=== PATIENT | female | born 1945 | race Caucasian/White ===

== ENCOUNTER → 2016-12-12 | Outpatient (CLI) | payer MEDICARE, OTHER ==
--- NOTE | ~2016-12-12 | PUL ---
PATIENT'S NAME: JANIS MARI [facility] AGE: 71 Y [address] ROOM: [place] [address] LOCATION: [facility] ADMIT DATE: 12/12/2016 Pulmonary DISCHARGE DATE: FAMILY PHYSICIAN: Eleazar Adame MD ATTENDING PHYSICIAN: Eleazar Bennett NAME OF PROCEDURE: Sleep Study PROCEDURE DATE: 12/12/16 TECH: NICOLE Saleem TEST #: [facility] [place]# [id number] TECHNICAL PARAMETERS: The patient was studied using International 10/20 measuring system. While the patient was studied, there was continuous monitoring of EEG (8 leads), EOG (2 leads), EKG (3 leads), submental EMG (3 leads), tibial (4 leads), respiratory inductive plethysmography (RIP) for thoracic and abdominal effort, oral and nasal airflow with a thermocouple and pressure transducer, and oximetry. The underwriting technician also performed visual and auditory observations noting things like body position, patient's status, breath sounds, artifact, snoring level and patient comments. Continuous sound was monitored using a 2-way speaker system and video monitoring was performed using an infrared camera. Review of the entire study was performed epoch by epoch utilizing a single epoch and multiple epoch capability sleep system. MEDICAL HISTORY: Patient is a 71-year-old woman with daytime sleepiness and snoring. SLEEP STAGE SUMMARY: The patient was studied for 365 minutes of which she slept less than 60 minutes. She fell asleep in 130 minutes and slept for 69% of the night. RESPIRATORY SUMMARY: This study was done to titrate CPAP which was started at 6 cm and titrated to 8 cm. The patient had a great deal of difficulty sleeping with CPAP on and therefore CPAP titration was incomplete. EKG SUMMARY: Average heart rate 66 beats per minute. LIMB MOVEMENT SUMMARY: No clinically relevant periodic limb movements were noted. SUMMARY: History of obstructive sleep apnea with incomplete CPAP titration. PLAN: Consider auto titrating CPAP. PATIENT'S NAME: JANIS MARI [facility] AGE: 71 Y [address] ROOM: [place] [address] LOCATION: [facility] ADMIT DATE: 12/12/2016 Pulmonary DISCHARGE DATE: FAMILY PHYSICIAN: Eleazar Adame MD ATTENDING PHYSICIAN: Eleazar Bennett MD KHANH GRACIA/ /[id number] dtt: 12/30/16 1301 Sabrina David E. dtd: 12/15/16 1134
== END | disposition disaster alternative care site (69) ==
LOC: GSLP 20:20
DX: G47.33 Obstructive sleep apnea (adult) (pediatric) (principal)